=== PATIENT | male | born 1945 | race Caucasian/White ===

== ENCOUNTER → 2017-01-07 | Day surgery (SDC) | payer MEDICARE, OTHER ==
[~2017-01-07] VITALS: Ht 175.3 cm; Wt 91.3 kg
[~2017-01-07] MED LIST: ACETAMINOPHEN 1000 MG/100 ML VIAL IV ONE; BELLADONNA ALKALOIDS/OPIUM 60 MG SUPP RECTAL ONE; CHLORHEXIDINE GLUCONATE 2 % 1 PACK (2 CLOTHS) TOPICAL PRN; DEXAMETHASONE SOD PHOS 4 MG/ML VIAL ONE; DO NOT ADM ANY ANTICOAGULANT DRUGS PRN; FAMOTIDINE 20 MG/2 ML VIAL ONE; INSULIN HUMAN REGULAR 1,000 UNITS/10 ML VIAL SQ PRN; LACTATED RINGER'S 1000 ML INJ 1,000 ML IV ONE; LACTATED RINGER'S 1000 ML IV PRN; METOPROLOL TARTRATE 25 MG TAB PO PRN; MIDAZOLAM HCL 2 MG/2 ML VIAL ONE; NEOSTIGMINE 3 MG/3 ML SYR IV ONE; ONDANSETRON HCL 4 MG/2 ML VIAL IV PUSH ONE; POVIDONE IODINE 5% (ANTISEPSIS KIT) 4 APPLICATIONS EACH NARE PRN; PROPOFOL 200 MG/20 ML AMP IV ONE; SODIUM CHLORID 0.9% 500 ML IV PRN; ceFAZolin 2 GM PREMIX 50 ML IV SCH; ePHEDrine/NS 25 MG/5 ML SYR IV ONE; fentaNYL CITRATE 250 MCG/5 ML AMP ONE
[2017-01-07 12:16] VITALS: BP 134/69; PULSE 65; RESP 18; TEMP 98; O2SAT 97
[2017-01-07 12:57] LABS: PROTHROMBIN TIME - PATIENT 10.6 SEC (9.8-11.6)
--- NOTE | 2017-01-07 13:44 | EKG ---
Date Performed: 01/07/2017 Time Performed: 13:02:27 PTAGE: 71 years EKG: Sinus rhythm NORMAL ECG NO PREVIOUS TRACING DOCTOR: Prashanth Ramirez Interpretating Date/Time 01/07/2017 13:43:18
[2017-01-07 19:00] VITALS: BP 150/74; PULSE 87; RESP 18; O2SAT 97
--- NOTE | 2017-01-08 21:14 | MP ---
cc: KELTON OH MD DATE OF SURGERY 01/07/17 PREOPERATIVE DIAGNOSIS 1. Urinary retention 2. BPH with [place] POSTOPERATIVE DIAGNOSIS 1. Urinary retention 2. BPH with [place] PROCEDURE PERFORMED 1. Cystourethroscopy 2. TURP SURGEON Abdelrahman Oh MD ANESTHESIA General. COMPLICATIONS None. PREOPERATIVE ANTIBIOTICS Ancef 2 grams IV DRAINS 22-[place] Symplastic Drummond catheter gravity drainage SPECIMENS Prostatic chips for permanent BLOOD LOSS Less than 10 mL DISPOSITION To recovery INDICATIONS The patient is a 71-year-old male who was referred for evaluation of recurrent urinary retention. The patient had significant lower urinary tract symptoms for quite some time. However, he recently was unable to urinate and required a Drummond catheter. He has had since learned how to intermittently catheter himself despite. Being on Flomax and Proscar, he was unable to empty his bladder. Treatment options were discussed and he elected to proceed with cystoscopy, TURP. The risks, benefits and alternatives were explained to patient including the risk of erectile dysfunction, urinary incontinence, retrograde ejaculation and the patient elected to proceed. Informed consent was obtained. PROCEDURE IN DETAIL The patient was properly identified, brought back to the cystoscopy suite. He was laid supine on cystoscopy table. Proper time-out was performed under direction of anesthesiology. The patient was intubated and induced under general anesthetic. Preoperative antibiotics in the form of Ancef 2 grams IV was given 1 hour prior to start of procedure. The patient was then placed in dorsolithotomy position, prepped and draped in normal sterile surgical fashion. Using the 25-[place] continuous sheath with visual obturator we passed the scope gently into his bladder without any difficulty. 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 The rest of his bladder did appear mildly trabeculated. Both orifices were identified and appeared in normal anatomic location. I then switched to the resectoscope. I began ____ with the green light [place] laser fiber to take down the median lobe. As I was taking down the median lobe, the median lobe started to bleed and ooze. I continued to vaporize the tissue, but visualization was difficult due to the massive size of his median lobe. At this time, I decided to switch to the bipolar. The bipolar was then switched. I was then able to resect the median lobe all the way down to the level of the bladder neck. The remaining lateral lobe hyperplasia was then resected all the way to the verumontanum. I did not violate the boundary of the verumontanum. Both orifices were identified throughout the portion of the case and remained patent throughout the case. The was then used to remove the prostatic chips. Hemostasis achieved. At this time, the bladder was then emptied of prostatic chips. Hemostasis was adequate. At this time, the cystoscope was removed. I then placed a 22-[place] symplastic catheter to gravity drainage. This concluded the procedure. The patient was taken to recovery in stable condition to be discharged home per PACU protocol and follow up in 1 week to go over the pathology results. We will leave the catheter in for several days and then void trial on Wednesday, January 11. MD KARIN Sánchez/ /5:07 PM /9:02 PM
== END | disposition home or self-care (01) ==
LOC: HSDC 11:41
PROVIDERS: ATTEND Urology
DX: R33.9 Retention of urine, unspecified (principal); N40.1 Benign prostatic hyperplasia with lower urinary tract symptoms; Z01.810 Encounter for preprocedural cardiovascular examination
CPT/HCPCS: 00914; 52601; 85610; 88305; 93005; C1769; J0131; J1100; J2250; J2405; J2710; J3010; J7120